=== PATIENT | male | born 1990 | race Caucasian/White ===

== ENCOUNTER 2016-06-10 21:51 | Emergency (ER) | payer OTHER ==
[~2016-06-10] VITALS: Ht 172.7 cm; Wt 80.0 kg
[2016-06-10 22:03] VITALS: BP 130/70
== END 2016-06-10 22:42 | disposition left against medical advice (07) ==
LOC: ER 21:51
DX: R51 Headache (principal); Z53.21 Procedure and treatment not carried out due to patient leaving prior to being seen by health care provider